=== PATIENT | male | born 1955 | race Caucasian/White ===

== ENCOUNTER → 2016-06-05 | Outpatient (CLI) | payer MEDICARE, OTHER ==
[~2016-06-05] MED LIST: ARICEPT5 M1 PO; ASPIRIN81 M2 PO; BLOOD PRESSURE; CHOLESTEROL MED; CLOPIDOGREL75 MG PO; COREG3.125 MG PO; LEVOTHYROXINE100 MCG PO; LEXAPRO PO; LIPITOR80 MG PO; LISINOPRIL5 MG PO; MAG-OX 400400 M1 PO; MAGNESIUM-VIT1 EACH PO; MEDROL PO; NICOTINE PATCH1 EACH TD; NITROSTAT0.4 MG SL; PLAVIX PO; PRILOSEC PO; SYMBICORT INH; SYNTHROID112 MCG PO; VITAMIN B122500 MCG PO; VITAMIN D2400 UNIT PO; WALGREENS; ZESTRIL5 MG PO; [UNRECOGNIZED DRUG - REMARK]; [UNRECOGNIZED DRUG - REMARK]
--- NOTE | ~2016-06-05 | CT71 ---
[facility] A Service [facility] RADIOLOGY TEXT RESULTS PATIENT: FRANCY PHAN LOCATION: [facility] : 53 UNIT #: [id number] AGE: [address]: Phillip Iglesias MD SEX: M ORDER DR: [id number] [place] [id number] O MR#: [id number] Acc #: [id number] NAME: FRANCY PHAN : 1955 SEX: M STUDY DATE/TIME: 06/05/2016 9:10 UNIT: [facility] ROOM: STUDY DESCRIPTION: CT Head Wo Contrast Attending Physician: Phillip Iglesias M.D. Referring Physician: Phillip Iglesias M.D. Ordering Physician: Phillip Iglesias M.D. Primary Care Physician: Saira Goins A.P.R.N. MEDICAL IMAGING REPORT This report is preliminary unless electronic signature is present. EXAM Head CT, no contrast. DATE OF STUDY 06/05/2016 CLINICAL HISTORY Dizziness for one month. Episode of shaking, near syncope, and confusion. COMPARISON STUDIES Prior head CT, 03/28/[address] exam was performed with one or more of the following radiation dose reduction techniques: automatic exposure control, adjustment of mA and/or kV according to patient size, and iterative reconstruction. FINDINGS There are chronic field left facial fracture deformities but there is no acute fracture. There is mild volume loss but no hemorrhage or hydrocephalus or extraaxial fluid collection. There is some mild periventricular white matter change and there is an old right caudate head lacunar lesion, as well as an area of inferomedial right cerebellar encephalomalacia from some remote prior insult. However, there is no convincing evidence of any acute intracranial abnormality. IMPRESSION Modest chronic changes. No acute intracranial abnormality. No interval change since a prior head CT of 03/28/2016. Old healed left facial fractures. [facility] A Service [facility] RADIOLOGY TEXT RESULTS PATIENT: FRANCY PHAN LOCATION: [facility] : 54 UNIT #: [id number] AGE: [address]: Phillip Iglesias MD SEX: M ORDER DR: Dictated by... Neri Edmondson M.D. THIS IS AN ELECTRONICALLY VERIFIED REPORT Neri Edmondson M.D. at 06/05/2016 5:03 PM REJI/kirt TD: 06/05/2016 11:25 JOB #: [id number] MEDICAL IMAGING REPORT
== END | disposition home or self-care (01) ==
LOC: SCT 09:00
DX: R55 Syncope and collapse (principal)
CPT/HCPCS: 70450

== ENCOUNTER 2016-08-30 12:06 | Emergency (ER) | payer MEDICARE, OTHER ==
--- NOTE | ~2016-08-30 | CR72 ---
[facility] A Service of [facility] & [facility] RADIOLOGY TEXT RESULTS PATIENT: FRANCY PHAN LOCATION: SED : 53 UNIT #: [id number] AGE: [address]: Jeff Albarran MD SEX: M ORDER DR: [id number] [place] [id number] E MR#: [id number] Acc #: [id number] NAME: FRANCY PHAN. : 1955 SEX: M STUDY DATE/TIME: 08/30/2016 13:19 UNIT: SED ROOM: STUDY DESCRIPTION: CR Chest Single View Portable Attending Physician: Jeff Albarran M.D. Ordering Physician: Jeff Albarran M.D. Primary Care Physician: Saira Goins A.P.R.N. MEDICAL IMAGING REPORT This report is preliminary unless electronic signature is present. EXAM Chest portable, 08/30/16, 1319 hours. CLINICAL HISTORY 61-year-old with lightheadedness, weakness and shortness of air today. COMPARISON 03/28/16 FINDINGS Single portable upright view demonstrates normal cardiac, mediastinal and hilar contours. There is stable benign calcified right paratracheal nodes with calcified granulomata in both lungs. The lungs are otherwise clear and there are no effusions. IMPRESSION Stable benign calcified granulomatous changes. There are no acute cardiopulmonary findings. Dictated by... Berenice Jaramillo M.D. THIS IS AN ELECTRONICALLY VERIFIED REPORT Berenice Jaramillo M.D. at 08/30/2016 5:50 PM Celina TD: 08/30/2016 15:55 JOB #: [id number] MEDICAL IMAGING REPORT Page 1 of 1
--- NOTE | ~2016-08-30 | EKG ---
PATIENT: FRANCY PHAN UNIT #: [id number] Ventricular Rate: 66 BPM Atrial Rate: 66 BPM P-R Interval: 150 ms QRS Duration: 92 ms Q-T Interval: 428 ms QTC Calculation(Bezet): 448 ms P [place]: 71 degrees Calculated R [place]: -12 degrees Calculated T [place]: -5 degrees Diagnosis Line: Normal sinus rhythm Diagnosis Line: Inferior infarct (cited on or before 28-MAR-2016) Diagnosis Line: Anterior infarct (cited on or before 28-MAR-2016) Diagnosis Line: Abnormal ECG Diagnosis Line: When compared with ECG of 29-MAR-2016 19:21, Diagnosis Line: Questionable change in initial forces of Lateral Diagnosis Line: leads Diagnosis Line: T wave inversion less evident in Inferior leads Diagnosis Line: Confirmed by VISHAL COSTA MD ([id number]) on 08/31/2016 Diagnosis Line: 7:09:13 PM INTERPRETING MD: JULISSA FORDE
--- NOTE | ~2016-08-30 | CT71 ---
[facility] A Service [facility] RADIOLOGY TEXT RESULTS PATIENT: FRANCY PHAN LOCATION: SED : 53 UNIT #: [id number] AGE: [address]: Jeff Albarran MD SEX: M ORDER DR: [id number] [place] [address] [id number] E MR#: [id number] Acc #: [id number] NAME: FRANCY PHAN. : 1955 SEX: M STUDY DATE/TIME: 08/30/2016 13:33 UNIT: SED ROOM: STUDY DESCRIPTION: CT Head Wo Contrast Attending Physician: Jeff Albarran M.D. Ordering Physician: Jeff Albarran M.D. Primary Care Physician: Saira Goins A.P.R.N. MEDICAL IMAGING REPORT This report is preliminary unless electronic signature is present. EXAM Head CT no contrast 08/30/2016. PROCEDURE Axial unenhanced head CT. This CT exam was performed with one or more of the following radiation dose reduction techniques: automatic exposure control, adjustment of mA and/or kV according to patient size, and iterative reconstruction. COMPARISON Prior head CT 06/05/2016. CLINICAL HISTORY Lightheadedness and generalized weakness since this morning. FINDINGS There is no acute abnormality. There is no intracranial hemorrhage or mass, hydrocephalus or extraaxial fluid collection or evidence of acute ischemia. Right cerebellar encephalomalacia is unchanged since the prior head CT, as are intracranial atherosclerotic vascular calcifications. There is a right cheek epidermal inclusion cyst, but the extracranial soft tissues are otherwise normal. The skull base and calvaria are unremarkable. IMPRESSION Chronic changes, but no acute abnormality; no interval change since 06/05/2016. Dictated by... Neri Edmondson M.D. [facility] A Service [facility] RADIOLOGY TEXT RESULTS PATIENT: FRANCY PHAN LOCATION: SED : 53 UNIT #: [id number] AGE: [address]: Jeff Albarran MD SEX: M ORDER DR: THIS IS AN ELECTRONICALLY VERIFIED REPORT Neri Edmondson M.D. at 09/01/2016 2:17 PM REJI/janki TD: 08/30/2016 15:40 JOB #: [id number] MEDICAL IMAGING REPORT Page 1 of 1
[~2016-08-30 12:06] MED LIST changes: -LIPITOR80 MG PO; -NICOTINE PATCH1 EACH TD; -NITROSTAT0.4 MG SL
[2016-08-30 13:22] LABS: BASOPHIL# 0.1 X10e3 (0-0.3); BASOPHIL% 0.9 % (0-2.5); EOSINOPHIL# 0.2 X10e3 (0-0.7); EOSINOPHIL% 2.6 % (0.0-7.0); HEMOGLOBIN 16.6 gm/dL (13.0-16.0); LYMPHOCYTE# 1.7 X10e3 (1.0-3.5); LYMPHOCYTE% 20.9 % (17.0-45.0); MEAN CELL VOLUME 97.7 FL (83-96); MEAN CORPUSCULAR HEMOGLOBIN 33.8 PG (28-34); MEAN CORPUSCULAR HGB CONC 34.6 g/dL (30-36); MEAN PLATELET VOLUME 9.2 FL (6.5-11.5); MONOCYTE# 0.7 X10e3 (0-1.0); MONOCYTE% 9.1 % (3.0-12.0); NEUTROPHIL# 5.4 X10e3 (1.5-7.1); NEUTROPHIL% 66.5 % (40-75); PLATELET COUNT 173 X10e3 (140-420); RED BLOOD COUNT 4.91 X10e (3.90-5.60); RED CELL DISTRIBUTION WIDTH 13.7 % (11.0-15.5); WHITE BLOOD COUNT 8.1 X10e3 (4.0-10.5)
[2016-08-30 13:31] LABS: URINE SOURCE CLEAN CATCH
[2016-08-30 13:32] LABS: POC - CKMB 3.3 ng/mL (0.0-7.9); POC - TROPONIN <0.05 ng/mL (<=0.05)
[2016-08-30 13:34] LABS: MICRO INDICATED? NO; URINE APPEARANCE CLEAR; URINE BILIRUBIN NEG (NEG); URINE BLOOD NEG (NEG); URINE COLOR YELLOW; URINE GLUCOSE NEG (NORM); URINE KETONE NEG (NEG); URINE LEUKOCYTE ESTERASE NEG (NEG); URINE NITRATE NEG (NEG); URINE PH 5.5 (5-8); URINE PROTEIN NEG (NEG); URINE SPECIFIC GRAVITY <=1.005 (1.003-1.035); URINE UROBILINOGEN 0.2 MG/DL (NORM)
[2016-08-30 13:34] LABS: DIFF IND NO
[2016-08-30 13:41] LABS: ALBUMIN SERUM 4.6 g/dL (3.5-5.0); BILIRUBIN, DIRECT 0.1 mg/dL (0.0-0.2); BILIRUBIN,INDIRECT 0.5 mg/dL (0.0-0.9); BILIRUBIN,TOTAL 0.6 mg/dL (0.2-2.0); BUN/CREATININE RATIO 14.44; CALCIUM SERUM 9.3 mg/dL (8.4-10.2); CREATININE SERUM 0.9 mg/dL (0.6-1.4); GLOM FILT RATE Estimated 91.2 mL/min (>60); POTASSIUM 4.2 mmol/L (3.5-5.1)
[2016-08-30 13:43] LABS: AMPHETAMINE NEG (NEG); BARBITURATES NEG (NEG); BENZODIAZEPINES NEG (NEG); COCAINE NEG (NEG); MARIJUANA NEG (NEG); OPIATES NEG (NEG); TRICYCLIC ANTIDEPRESSANTS NEG (NEG); U METHADONE NEG (NEG)
== END 2016-08-30 14:34 | disposition home or self-care (01) ==
LOC: SED 12:06
PROVIDERS: Emergency Medicine
DX: R42 Dizziness and giddiness (principal); R53.1 Weakness; F03.90 Unspecified dementia, unspecified severity, without behavioral disturbance, psychotic disturbance, mood disturbance, and anxiety; I10 Essential (primary) hypertension; F17.200 Nicotine dependence, unspecified, uncomplicated; Z79.899 Other long term (current) drug therapy
CPT/HCPCS: 36415; 70450; 71010; 80048; 80076; 80307; 81003; 82553; 84484; 85025; 93005; 99284; G0480

== ENCOUNTER 2016-11-20 00:03 | Emergency (ER) | payer MEDICARE, OTHER ==
[~2016-11-20] VITALS: Ht 170.2 cm; Wt 72.6 kg
--- NOTE | ~2016-11-20 | CR72 ---
[facility] A Service of [facility] & [facility] RADIOLOGY TEXT RESULTS PATIENT: FRANCY PHAN LOCATION: [facility] : 53 UNIT #: [id number] AGE: [address]: Yonatan Herrera MD SEX: M ORDER DR: [id number] [facility] [address] [place], [place] [address] [id number] E MR#: [id number] Acc #: [id number] NAME: FRANCY PHAN. : 1955 SEX: M STUDY DATE/TIME: 11/20/2016 0:37 UNIT: [facility] ROOM: STUDY DESCRIPTION: CR Chest Single View Portable Attending Physician: Yonatan Herrera M.D. Ordering Physician: Yonatan Herrera M.D. Primary Care Physician: Saira Goins A.P.R.N. MEDICAL IMAGING REPORT This report is preliminary unless electronic signature is present EXAM Portable chest HISTORY Shortness of air and cough for 1 day. FINDINGS The cardiac size and pulmonary vascularity are normal. Calcified right mediastinal nodes and small calcified granuloma right midlung. No airspace infiltrates or effusions. Old healed fracture right clavicle. IMPRESSION No acute findings Dictated by... Vincent Kim M.D. THIS IS AN ELECTRONICALLY VERIFIED REPORT Vincent Kim M.D. at 11/20/2016 10:29 PM PIETRO/shiva TD: 11/20/2016 12:04 JOB #: [id number] MEDICAL IMAGING REPORT Page 1 of 1 COPY
== END 2016-11-20 02:06 | disposition home or self-care (01) ==
LOC: CED 00:03
DX: J44.9 Chronic obstructive pulmonary disease, unspecified (principal); F17.200 Nicotine dependence, unspecified, uncomplicated; Z79.899 Other long term (current) drug therapy
CPT/HCPCS: 71010; 94640; 99285

== ENCOUNTER 2016-11-21 20:12 | Observation (INO) | payer MEDICARE, OTHER ==
[~2016-11-21] VITALS: Ht 160 cm; Wt 63.6 kg
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
--- NOTE | ~2016-11-21 | DS ---
Unit #: [id number] #: [id number] Patient: FRANCY PHAN [id number] [address] [address] [id number] I MR#: [id number] NAME: FRANCY PHAN. ROOM: 574 Age: 61 Sex: M Admission Date: 11/22/2016 : 1955 Discharge Date: 11/22/2016 Attending Physician: Danielle Iglesias M.D. Primary Care Physician: Danielle Iglesias M.D. DISCHARGE SUMMARY SHORT STAY SUMMARY DIAGNOSES 1. Presyncope. 2. Chest pressure. 3. History of coronary artery disease. 4. History of peripheral vascular disease. 5. History of dementia. 6. Hypertension. 7. Hypothyroidism. HISTORY OF PRESENT ILLNESS Mr. Phan is a 62-year-old gentleman with a history of coronary artery disease, peripheral vascular disease, dementia, hypertension, hypothyroidism, who was admitted secondary to a presyncope episode along with some chest pressure. Apparently, he inhaled some type of bug spray and experienced chest pressure along with the extreme lightheadedness, denies any current chest pain, denies any shortness of air, dyspnea, denies any headache, dizziness, fever, chills, nausea, vomiting, diarrhea or abdominal pain. So, a 12-point review of systems on this patient basically negative except as above. PAST MEDICAL HISTORY As above in HPI. SOCIAL HISTORY Smokes tobacco, drinks alcohol on occasion, no history of IV drug use. FAMILY HISTORY Unremarkable. ALLERGIES No known drug allergies. CURRENT MEDICATIONS 1. Vitamin D. 2. Aricept. 3. Plavix. 4. Magnesium oxide. 5. Zestril. 6. Aspirin. 7. Vitamin B12. 8. Lexapro. 9. Coreg. Unit #: [id number] #: [id number] Patient: FRANCY PHAN 10. Synthroid. 11. Aspirin. PHYSICAL EXAMINATION GENERAL APPEARANCE: He is a 62-year-old gentleman in no acute distress. VITAL SIGNS: BP 134/78. Heart rate 71. Respirations 18. Temperature 97.8. Sating 100%. HEENT: Head is atraumatic. Pupils equal, round, reactive to light and accommodation. Extraocular muscles intact. Oropharynx (1) . NECK: Supple. No mass. No JVD. No bruits. CHEST: Clear to auscultation bilaterally. CARDIOVASCULAR: S1, S2. No murmurs. ABDOMEN: Soft, nontender, nondistended. LOWER EXTREMITIES: No cyanosis, clubbing, or edema. NEUROLOGIC: She was grossly intact. No focal deficits. DIAGNOSTIC STUDIES LABORATORY: Chemistry completely normal. Coagulation unremarkable. Cardiac enzymes negative. Hematology unremarkable with MCV elevated at 99.4, otherwise, negative. White count 8.6. IMAGING: CT of the head unremarkable. Chest x-ray unremarkable. ASSESSMENT AND PLAN 1. Presyncope episode with some chest pressure and patient with the history of coronary artery disease status post cardiology evaluation. Negative cardiac enzymes. Unremarkable EKG. Going for stress Cardiolite. If the stress Cardiolite is negative, the patient will be discharged home on home medications. 2. Hypertension. Continue home meds. 3. History of peripheral vascular disease. Continue Plavix, aspirin. 4. History of dementia. Continue Aricept. Please note that this is preliminary short stay summary. If the patient's Cardiolite stress test is negative, the patient will be discharged home on current medications to follow up the primary care physician in two to three days. Dictated by... Ania Thompson/michael TD: 11/22/2016 14:16 JOB #: [id number] Unit #: [id number] #: [id number] Patient: EMILIEFRANCY Salas DISCHARGE SUMMARY Page 1 of 1 X Dennis Jacobo MD X DISCHARGE SUMMARY
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
--- NOTE | ~2016-11-21 | TH ---
Unit #: [id number] #: [id number] Patient: FRANCY PHAN [id number] [facility] [[email or web address] [address] [address] [id number] I MR#: [id number] NAME: FRANCY PHAN. : 1955 SEX: M STUDY DATE/TIME: 11/22/2016 UNIT: [facility] ROOM: 574 STUDY DESCRIPTION: Attending Physician: Danielle Iglesias M.D. Primary Care Physician: Danielle Iglesias M.D. CARDIOLOGY REPORT EXAM Lexiscan Cardiolite stress test, nuclear portion. PROCEDURE Using technetium 99m labeled Cardiolite, rest and stress SPECT images were obtained. Multiple SPECT images were obtained in various views including horizontal and vertical long axis and short axis views of the left ventricle. Images were obtained by gated SPECT method. The patient was administered 12 mCi of Cardiolite at rest. Patient was administered 35.7 mCi of Cardiolite after Lexiscan infusion was completed. On the stress images, there is an extremely large area of severe decreased isotope activity involving the entire inferior and the lateral wall of the left ventricle. The rest images also show a large area of severe decreased isotope activity involving the inferior and the lateral wall. Comparing rest and stress images, there is suspicion for large myocardial infarction involving the inferior and the lateral wall of the left ventricle with some kristofer-infarct ischemia. The left ventricular ejection fraction is calculated to be 52% which may be an over estimation. There is akinesis involving the inferior and the lateral wall. CONCLUSION 1. Suspicion for large myocardial infarction involving the inferior and the lateral wall of the left ventricle with some kristofer-infarct ischemia. 2. The left ventricular ejection fraction is calculated to be 52% which may be an overestimation. 3. There is akinesis involving the inferior and the lateral wall. 4. There is mild left ventricular cavity dilatation both at rest and post stress. 5. Suspicion for moderate ischemic cardiomyopathy with large myocardial infarction involving the inferior and the lateral wall with some kristofer-infarct ischemia. Dictated byAnia Fink TD: 11/22/2016 15:12 JOB #: [id number] Unit #: [id number] #: [id number] Patient: FRANCY PHAN CARDIOLOGY REPORT Page 1 of 1 X Emerald Watson MD <ELECTRONICALLY SIGNED> 12/14/16 1524 CARDIOLOGY REPORT
--- NOTE | ~2016-11-21 | CT71 ---
[facility] RADIOLOGY TEXT RESULTS PATIENT: FRANCY PHAN LOCATION: [facility] 574-01 : 53 UNIT #: [id number] AGE: [address]: Danielle Iglesias MD SEX: M ORDER DR: [id number] [facility]. [place], [place] [address] [id number] MR#: [id number] Acc #: [id number] NAME: FRANCY PHAN. : 1955 SEX: M STUDY DATE/TIME: 11/21/2016 21:29 UNIT: [facility] ROOM: STUDY DESCRIPTION: CT Head Wo Contrast Attending Physician: David Bardales D.O. Ordering Physician: David Bardales D.O. Primary Care Physician: Danielle Iglesias M.D. MEDICAL IMAGING REPORT This report is preliminary unless electronic signature is present EXAM Noncontrast head CT HISTORY Confusion for 2 days after inhaling bed bug balm. COMPARISON Head CT 08/30/[address] exam was performed with one or more of the following radiation dose reduction techniques: automatic exposure control, adjustment of mA and/or kV according to patient size, and iterative reconstruction. FINDINGS Axial noncontrast imaging of the brain demonstrates generalized atrophy. No mass or mass effect or midline shift. No hemorrhage. Questionable old right cerebellar infarct. The bony calvaria, skull base, mastoids and sinuses unremarkable. IMPRESSION No acute intracranial abnormality identified. No change when compared to the patient's head CT from 08/30/2016. No change when compared to the patient's head CT from 06/05/2016. No change when compared to the patient's head CT from 03/28/2016. Dictated by... Aníbal Mckay M.D. THIS IS AN ELECTRONICALLY VERIFIED REPORT Aníbal Mckay M.D. at 11/22/2016 2:22 PM DEBORAHS/anne [facility] A [facility] RADIOLOGY TEXT RESULTS PATIENT: FRANCY PHAN LOCATION: [facility] 574-01 : 53 UNIT #: [id number] AGE: [address]: Danielle Iglesias MD SEX: M ORDER DR: TD: 11/22/2016 01:01 JOB #: [id number] MEDICAL IMAGING REPORT Page 1 of 1 COPY
--- NOTE | ~2016-11-21 | EKG ---
PATIENT: FRANCY PHAN UNIT #: [id number] Ventricular Rate: 55 BPM Atrial Rate: 55 BPM P-R Interval: 140 ms QRS Duration: 90 ms Q-T Interval: 506 ms QTC Calculation(Bezet): 484 ms P Morganza: 74 degrees Calculated R Morgan[place]: -12 degrees Calculated T Morgan[place]: -25 degrees Diagnosis Line: Sinus bradycardia Diagnosis Line: Cannot rule out Septal infarct (cited on or before Diagnosis Line: 28-MAR-2016) Diagnosis Line: Cannot rule out Inferior infarct (cited on or Diagnosis Line: before 28-MAR-2016) Diagnosis Line: Abnormal ECG Diagnosis Line: When compared with ECG of 21-NOV-2016 20:48, Diagnosis Line: (unconfirmed) Diagnosis Line: Questionable change in initial forces of Lateral Diagnosis Line: leads Diagnosis Line: Confirmed by MIRANDA REEVES MD ([id number]) on 11/22/2016 Diagnosis Line: 7:25:08 PM INTERPRETING MD: LALA FORDE
--- NOTE | ~2016-11-21 | ST ---
Unit #: [id number] #: [id number] Patient: FRANCY PHAN [id number] [facility]. [address] [address] [id number] MR#: [id number] NAME: FRANCY PHAN. : 1955 SEX: M STUDY DATE/TIME: 11/22/2016 UNIT: [facility] ROOM: 574 STUDY DESCRIPTION: Cardiac stress test. Attending Physician: Danielle Iglesias M.D. Primary Care Physician: Danielle Iglesias M.D. CARDIOLOGY REPORT EXAM Cardiac stress test. REASON FOR STUDY Chest pain and shortness of breath. PROCEDURE Baseline EKG shows sinus bradycardia, rate of 59 beats per minute. Nonspecific ST-T wave abnormalities are noted. Cannot rule out previous septal and inferior infarct. This is a walking Lexiscan. The patient was injected with 0.4 of Lexiscan followed by Cardiolite. During the infusion the patient complained of some mild shortness of breath and leg fatigue, but denied any complaints of chest pain, lightheadedness or dizziness. There was quite a bit of respiratory artifact, but no overt ST-T wave changes suggestive of ischemia. There was isolated PVC in the recovery period. The test was stopped secondary to protocol completion. IMPRESSION 1. Nondiagnostic walking Lexiscan Cardiolite secondary to baseline EKG abnormality. 2. No overt ST-T wave changes suggestive of ischemia. However, the patient already had baseline ST-T wave abnormality. 3. During the infusion he experienced some mild shortness of breath and leg fatigue, but denied any complaints of chest pain. These symptoms resolved in the recovery period. 4. There was an isolated PVC in recovery period, but no sustained arrhythmias. 5. Please correlate with nuclear imaging. Dictated by... Dilma Osman A.P.R.N. for Ania Keene/gz TD: 11/22/2016 13:23 JOB #: [id number] Unit #: [id number] #: [id number] Patient: FRANCY PHAN CARDIOLOGY REPORT Page 1 of 1 X Dilma Osman APRN CARDIOLOGY REPORT
--- NOTE | ~2016-11-21 | EKG ---
PATIENT: FRANCY PHAN UNIT #: [id number] Ventricular Rate: 59 BPM Atrial Rate: 59 BPM P-R Interval: 164 ms QRS Duration: 96 ms Q-T Interval: 450 ms QTC Calculation(Bezet): 445 ms P [place]: 64 degrees Calculated R [place]: -8 degrees Calculated T [place]: -49 degrees Diagnosis Line: Sinus bradycardia with occasional Premature Diagnosis Line: ventricular complexes Diagnosis Line: Possible Inferior infarct (cited on or before Diagnosis Line: 28-MAR-2016) Diagnosis Line: T wave abnormality, consider lateral ischemia Diagnosis Line: Abnormal ECG Diagnosis Line: When compared with ECG of 22-NOV-2016 10:30, Diagnosis Line: Premature ventricular complexes are now Present Diagnosis Line: Inverted T waves have replaced nonspecific T wave Diagnosis Line: abnormality in Inferior leads Diagnosis Line: Confirmed by JOSE ROBERTO DANIELLE MD ([id number]) on Diagnosis Line: 11/24/2016 4:37:03 PM INTERPRETING MD: LIZETH
--- NOTE | ~2016-11-21 | EKG ---
PATIENT: FRANCY PHAN UNIT #: [id number] Ventricular Rate: 67 BPM Atrial Rate: 67 BPM P-R Interval: 146 ms QRS Duration: 92 ms Q-T Interval: 446 ms QTC Calculation(Bezet): 471 ms P [place]: 74 degrees Calculated R [place]: -27 degrees Calculated T [place]: -9 degrees Diagnosis Line: Normal sinus rhythm Diagnosis Line: Inferior infarct , age undetermined Diagnosis Line: Cannot rule out Anterior infarct , age Diagnosis Line: undetermined Diagnosis Line: Abnormal ECG Diagnosis Line: No previous ECGs available Diagnosis Line: Confirmed by MIRANDA REEVES MD ([id number]) on 11/22/2016 Diagnosis Line: 7:18:58 PM INTERPRETING MD: LALA FORDE
--- NOTE | ~2016-11-21 | DS ---
Unit #: [id number] #: [id number] Patient: FRANCY PHAN [id number] [address] [address] [id number] I MR#: [id number] NAME: FRANCY PHAN. ROOM: 574 Age: 61 Sex: M Admission Date: 11/22/2016 : 1955 Discharge Date: 11/23/2016 Attending Physician: Danielle Iglesias M.D. Primary Care Physician: Danielle Iglesias M.D. DISCHARGE SUMMARY DISCHARGE DIAGNOSES 1. Presyncope, status post Cardiology evaluation, status post cardiac cath. Continue medical management. 2. History of coronary artery disease. Continue dual antiplatelet therapy. Continue beta rajesh. 3. History of peripheral vascular disease as above. 4. Hypertension. 5. Hypothyroidism. 6. Dementia. CONSULTS DURING THIS HOSPITAL STAY Dr. Fuentes. DISCHARGE MEDICATIONS 1. Magnesium oxide 400 mg b.i.d. 2. Lexapro 10 mg daily. 3. Nicotine patch 21 mg daily. 4. Coreg 3.125 mg b.i.d. 5. Aricept 5 mg at bedtime. 6. Lipitor 80 mg daily. 7. Lisinopril 5 mg daily. 8. Aspirin 81 mg daily. 9. Plavix 75 mg daily. 10. Synthroid 112 mcg daily. 11. Nitrostat p.r.n. 12. Vitamin B12 at 100 mcg p.o. b.i.d. 13. Vitamin D at 50,000 units p.o. weekly. DISPOSITION Going home. FOLLOWUP 1. With primary care physician in two to three days. 2. Outpatient followup with Cardiology as needed. HISTORY OF PRESENT ILLNESS Please refer to H and P for initial presentation on this gentleman. ACTIVE PROBLEMS DIAGNOSED Presyncope, status post Cardiology evaluation, status post abnormal stress test which was followed by a cardiac cath. No stents needed at this point. Continue medical management. See full report per Dr. Fuentes. History of coronary artery disease. Unit #: [id number] #: [id number] Patient: FRANCY PHAN History of peripheral vascular disease. Hypertension. Dyslipidemia. Hypothyroidism. Dementia. Continue all medications as per Discharge Medications above. Dictated by... Dennis Jacobo M.D. OC/am TD: 11/23/2016 20:29 JOB #: [id number] DISCHARGE SUMMARY Page 1 of 1 X Dennis Jacobo MD DISCHARGE SUMMARY
[2016-11-21 21:29] LABS: BASOPHIL# 0.1 X10e3 (0-0.3); BASOPHIL% 0.9 % (0-2.5); EOSINOPHIL# 0.3 X10e3 (0-0.7); EOSINOPHIL% 2.9 % (0.0-7.0); HEMATOCRIT 46.4 % (38.0-50.0); HEMOGLOBIN 15.8 gm/dL (13.0-16.0); LYMPHOCYTE# 2.8 X10e3 (1.0-3.5); MEAN CELL VOLUME 99.4 FL (83-96); MEAN CORPUSCULAR HEMOGLOBIN 33.8 PG (28-34); MEAN PLATELET VOLUME 9.9 FL (6.5-11.5); MONOCYTE# 0.8 X10e3 (0-1.0); MONOCYTE% 9.7 % (3.0-12.0); NEUTROPHIL# 4.7 X10e3 (1.5-7.1); NEUTROPHIL% 54.5 % (40-75); PLATELET COUNT 163 X10e3 (140-420); RED BLOOD COUNT 4.67 X10e (3.90-5.60); RED CELL DISTRIBUTION WIDTH 13.6 % (11.0-15.5); WHITE BLOOD COUNT 8.6 X10e3 (4.0-10.5)
[2016-11-21 21:32] LABS: DIFF IND NO
[2016-11-21 21:42] LABS: INR 1.1; PARTIAL THROMBOPLASTIN TIME 28.1 SECONDS (23.5-31.3); PROTHROMBIN TIME (PATIENT) 11.4 SECONDS (10.0-11.7)
[2016-11-21 22:04] LABS: ACETAMINOPHEN <10 ug/mL; ALBUMIN SERUM 4.4 g/dL (3.5-5.0); ALCOHOL BLOOD <5 mg/dL (0); ALKALINE PHOSPHATASE 68 U/L (32-92); ALT (SGPT) 23 U/L (10-40); AST (SGOT) 35 U/L (10-42); BILIRUBIN, DIRECT 0.2 mg/dL (0.0-0.2); BILIRUBIN,INDIRECT 0.4 mg/dL (0.0-0.9); BILIRUBIN,TOTAL 0.6 mg/dL (0.2-2.0); BLOOD UREA NITROGEN 11 mg/dL (9-23); BUN/CREATININE RATIO 12.22; CARBON DIOXIDE 27 mmol/L (22-31); CHLORIDE 101 mmol/L (100-111); CREATININE SERUM 0.9 mg/dL (0.6-1.4); GLOM FILT RATE Estimated 91.2 mL/min (>60); GLUCOSE FASTING 78 mg/dL (70-110); POTASSIUM 3.9 mmol/L (3.5-5.1); PROTEIN TOTAL SERUM 7.6 g/dL (6.0-8.3); SALICYLATE <4.0 mg/dL; SODIUM 137 mmol/L (135-145)
[2016-11-21 22:29] LABS: URINE SOURCE CLEAN CATCH
[2016-11-21 22:34] LABS: URINE APPEARANCE CLEAR; URINE BILIRUBIN NEG (NEG); URINE BLOOD NEG (NEG); URINE COLOR YELLOW; URINE GLUCOSE NEG (NEG); URINE KETONE NEG (NEG); URINE LEUKOCYTE ESTERASE NEG (NEG); URINE NITRATE NEG (NEG); URINE PH 5.5 (5-8); URINE PROTEIN NEG (NEG); URINE SPECIFIC GRAVITY 1.005 (1.003-1.035); URINE UROBILINOGEN 0.2 MG/DL (NEG)
[2016-11-21 22:39] LABS: CULTURE INDICATED? NO
[2016-11-21 22:43] LABS: AMPHETAMINE NEG (NEG); BARBITURATES NEG (NEG); BENZODIAZEPINES NEG (NEG); COCAINE NEG (NEG); MARIJUANA NEG (NEG); OPIATES NEG (NEG); TRICYCLIC ANTIDEPRESSANTS NEG (NEG); U METHADONE NEG (NEG)
[2016-11-21 23:32] LABS: POC - CKMB 4.3 ng/mL (0.0-7.9); POC - TROPONIN <0.05 ng/mL (<=0.05)
[2016-11-22 01:27] LABS: POC - CKMB 3.6 ng/mL (0.0-7.9); POC - TROPONIN <0.05 ng/mL (<=0.05)
[2016-11-22 05:04] LABS: %MB 3.3 % (0.0-4.0); MB 6.8 ng/ml
[2016-11-22 15:09] LABS: %MB 2.8 % (0.0-4.0); MB 6.3 ng/ml
[2016-11-23 06:16] LABS: HEMATOCRIT 42.6 % (38.0-50.0); HEMOGLOBIN 14.4 gm/dL (13.0-16.0); MEAN CORPUSCULAR HEMOGLOBIN 33.8 PG (28-34); MEAN CORPUSCULAR HGB CONC 33.8 g/dL (30-36); RED BLOOD COUNT 4.26 X10e (3.90-5.60); WHITE BLOOD COUNT 6.7 X10e3 (4.0-10.5)
[2016-11-23 06:26] LABS: PROTHROMBIN TIME (PATIENT) 11.3 SECONDS (10.0-11.7)
[2016-11-23 06:43] LABS: BUN/CREATININE RATIO 18.75; CALCIUM SERUM 8.5 mg/dL (8.4-10.2); CREATININE SERUM 0.8 mg/dL (0.6-1.4); GLOM FILT RATE Estimated 95.8 mL/min (>60); POTASSIUM 3.6 mmol/L (3.5-5.1)
[2016-11-23] MEDS ORDERED: NICOTINE PATCH1 EACH TD (19:18)
[2016-11-23] MEDS ORDERED: LIPITOR80 MG PO (19:21)
[2016-11-23] MEDS ORDERED: NITROSTAT0.4 MG SL (19:23)
== END 2016-11-23 20:30 | disposition home or self-care (01) ==
LOC: CED 20:12 → CEDOF 11-22 02:30 → C5C 11-22 02:30 → CED 11-22 02:56 → CEDOF 11-22 02:56 → C5C 11-22 03:39
PROVIDERS: Emergency Medicine; Internal Medicine; Internal Medicine Cardiovascular Disease
DX: R55 Syncope and collapse (principal); R07.89 Other chest pain; I25.10 Atherosclerotic heart disease of native coronary artery without angina pectoris; I73.9 Peripheral vascular disease, unspecified; F03.90 Unspecified dementia, unspecified severity, without behavioral disturbance, psychotic disturbance, mood disturbance, and anxiety; I10 Essential (primary) hypertension; E03.9 Hypothyroidism, unspecified; F17.200 Nicotine dependence, unspecified, uncomplicated; Z79.899 Other long term (current) drug therapy; Z79.82 Long term (current) use of aspirin; Z79.01 Long term (current) use of anticoagulants; Z95.5 Presence of coronary angioplasty implant and graft
CPT/HCPCS: 36415; 70450; 71010; 78452; 80048; 80076; 80307; 81003; 82140; 82550; 82553; 82947; 83605; 83735; 84484; 85025; 85027; 85347; 85610; 85730; 93005; 93017; 94640; 96374; 99152; 99153; 99285; A9500; C1769; C1887; C1894; G0378; G0480; J0153; J1644; J2250; J2785; J2920; J3010